=== PATIENT | male | born 2000 | race Two or more races ===

== ENCOUNTER 2022-05-22 15:03 | Emergency (ER) | payer SELFPAY | END 2022-05-22 16:00 | disposition left against medical advice (07) | LOC: EDBD 15:03 → ER 15:03 | DX: R51.9 Headache, unspecified (principal); Z53.21 Procedure and treatment not carried out due to patient leaving prior to being seen by health care provider; W19.XXXA Unspecified fall, initial encounter; Y93.89 Activity, other specified; Y92.89 Other specified places as the place of occurrence of the external cause; Y99.8 Other external cause status ==